=== PATIENT | female | born 1950 | race Two or more races ===

== ENCOUNTER 2017-10-29 04:23 | Emergency (ER) | payer MEDICARE ==
[2017-10-29] MEDS ORDERED: diPHENhydraMINE IV* 50 MG/ML 1 ml VIAL (BENADRYL) IV ONE (04:51)
[2017-10-29] MEDS ORDERED: Metoclopramide IV* 5 MG/ML 2 ML VIAL IV SLOW PU ONE (04:51)
[2017-10-29] MEDS ORDERED: Ketorolac INJ* 30 MG/ML 1 ML VIAL IV PUSH PRN (04:51)
[2017-10-29] MEDS ORDERED: Ketorolac INJ* 30 MG/ML 1 ML VIAL ONE (05:04)
[2017-10-29 05:05] LABS: ABS Basophils 0.1 10^3/ul (0-0.2); ABS Eosinophils 0.2 10^3/ul (0-0.6); ABS Lymphocytes 2.3 10^3/ul (1.0-4.8); ABS Monocytes 0.9 10^3/ul (0-0.8); ABS Neutrophils 6.4 10^3/ul (1.5-7.7); ABS Nucleated RBC 0 10^3/ul; Eosinophil % 2.3 % (0-6); Hematocrit 38 % (35-47); Hemoglobin 12.8 g/dl (12.0-16.0); Lymphocyte % 23.2 % (25-47); Mean Corpuscular HGB Conc 34 g/dl (31-36); Mean Corpuscular Hemoglobin 32 pg (27-31); Mean Corpuscular Volume 93 fL (80-97); Mean Platelet Volume 8.4 um3 (7.4-10.4); Nucleated Red Blood Cells % 0.1; Platelet Count 246 10^3/ul (150-450); Red Blood Count 4.07 10^6/ul (4.00-5.40); Red Cell Distribution Width 14 % (10.5-15); White Blood Count 9.9 10^3/ul (3.5-10.8)
[2017-10-29 05:13] VITALS: BP 171/82
[2017-10-29 05:13] LABS: INR 0.94 (0.77-1.02)
[2017-10-29 05:22] LABS: EGFR Non-African American 89.6 (>60)
--- NOTE | 2017-10-29 06:31 | ED ---
Bertin Larkin Gabriel, scribed for Annel Deleon MD on 10/29/17 at 0454 . Headache - HPI Summary HPI Summary: This patient is a 67 year old F presenting to [facility] with a chief complaint of left sided ROMERO that began 0330 this morning. The patient rates the pain 8/10 in severity. Pt states she woke up with vertigo at 0130 that was accompanied by nausea and diaphoresis. She went back to bed and when she awoke sx began. She took 81 mg asa with no relief. No hx vertigo - History Of Current Complaint Chief Complaint: EDHeadache Stated Complaint: GENERAL ILLNESS Time Seen by Provider: 10/29/17 04:42 Hx Obtained From: Patient Onset/Duration: Started hours ago, Still Present Initially Headache Was: Initial Pain Scale(0-10)= - 8 Currently Pain Is: Current Pain Scale(0-10)= - 8 Timing: Constant Associated Signs And Symptoms: Nausea - Allergies/Home Medications Allergies/Adverse Reactions: Allergies Allergy/AdvReac Type Severity Reaction Status Date / Time No Known Allergies Allergy Verified 10/29/17 04:37 PMH/Surg Hx/FS Hx/Imm Hx Endocrine/Hematology History: Reports: Hx Thyroid Disease Respiratory History: Reports: Hx Sleep Apnea - CPAP AT NIGHT INST TO BRING GI History: Reports: Hx Gastroesophageal Reflux Disease - ;OK WITH DAILY MED, Other GI Disorders - gastric bypass Musculoskeletal History: Denies: Hx Osteoporosis Sensory History: Reports: Hx Contacts or Glasses - GLASSES Denies: Hx Hearing Aid Opthamlomology History: Reports: Hx Contacts or Glasses - GLASSES - Cancer History Hx Chemotherapy: No Hx Radiation Therapy: No - Surgical History Surgery Procedure, Year, and Place: 1978 C SECTION [facility] [place]. 1981 C SECTION [facility] [place]. 1989 CARPAL TUNNEL. 1991 HYSTERECTOMY [facility] [place]. 2004 H L DISC [facility] [place]. 2010 GASTRIC BYPASS. 2011 GASTRIC BYPASS Hx Anesthesia Reactions: No Infectious Disease History: No Infectious Disease History: Denies: Traveled Outside the [place] in Last 30 Days - Social History Substance Use Type: Reports: None Review of Systems Positive: Skin Diaphoresis Positive: Nausea Neurological: Other - dizziness Positive: Headache All Other Systems Reviewed And Are Negative: Yes Physical Exam - Summary Physical Exam Summary: VITAL SIGNS: Reviewed. GENERAL: Patient is a well-developed and nourished female who is lying comfortable in the stretcher. Patient is not in any acute respiratory distress. HEAD AND FACE: No signs of trauma. No ecchymosis, hematomas or skull depressions. No sinus tenderness. EYES: PERRLA, EOMI x 2, No injected conjunctiva, no nystagmus. EARS: Hearing grossly intact. Ear canals and tympanic membranes are within normal limits. MOUTH: Oropharynx within normal limits. NECK: Supple, trachea is midline, no adenopathy, no JVD, no carotid bruit, no c- spine tenderness, neck with full ROM. CHEST: Symmetric, no tenderness at palpation LUNGS: Clear to auscultation bilaterally. No wheezing or crackles. CVS: Regular rate and rhythm, S1 and S2 present, no murmurs or gallops appreciated. ABDOMEN: Soft, non-tender. No signs of distention. No rebound no guarding, and no masses palpated. Bowel sounds are normal. EXTREMITIES: FROM in all major joints, no edema, no cyanosis or clubbing. NEURO: Alert and oriented x 3. No acute neurological deficits. Speech is normal and follows commands. SKIN: Dry and warm Triage Information Reviewed: Yes Vital Signs On Initial Exam: Initial Vitals Temp Pulse Resp BP Pulse Ox 97.7 F 75 16 172/87 97 10/29/17 04:33 10/29/17 04:33 10/29/17 04:33 10/29/17 04:33 10/29/17 04:33 Vital Signs Reviewed: Yes Diagnostics - Vital Signs Vital Signs Temp Pulse Resp BP Pulse Ox 10/29/17 04:33 97.7 F 75 16 172/87 97 - Laboratory Result Diagrams: 10/29/17 04:59 10/29/17 04:59 Lab Statement: Any lab studies that have been ordered have been reviewed, and results considered in the medical decision making process. - CT CT Head CT Interpretation Completed By: Radiologist - normal brain. No acute intracranial abnormality. No hemorrhage. No visible infarct or mass. Osseous structure intact ED physician has reviewed this radiology report. - EKG 0506 Cardiac Rate: NL EKG Rhythm: Sinus Rhythm - at 64 BPM EKG Interpretation: non specific t wave changes in the anterior leads Re-Evaluation - Re-Evaluation Second Eval Re-Evaluation Time: 06:23 Change: Improved Comment: The pt feels better and her headache has resolved. Headache Course/Dx - Course Assessment/Plan: This patient is a 67 year old F presenting to [facility] with a chief complaint of left sided ROMERO that began 0330 this morning. The patient rates the pain 8/10 in severity. Pt states she woke up with vertigo at 0130 that was accompanied by nausea and diaphoresis. She went back to bed and when she awoke sx began. She took 81 mg asa with no relief. No hx vertigo. An EKG reveals non specific t wave changes in the interior leads. CT Head reveals, per radiologist, normal brain. No acute intracranial abnormality. No hemorrhage. No visible infarct or mass. Osseous structure intact. In the ED course the patient was given toradol, Reglan, and Benadryl. Patient will be discharged and follow up from PCP. The patient is agreeable with this plan. - Diagnoses Provider Diagnoses: Headache Discharge - Sign-Out/Discharge Documenting (check all that apply): Discharge/Admit/Transfer - Discharge Plan Condition: Stable Disposition: HOME Patient Education Materials: Acute Headache (ED) Referrals: Lani Renner MD [Primary Care Provider] - 3 Days Additional Instructions: RETURN TO THE ER FOR ANY NEW OR WORSENING SYMPTOMS The documentation as recorded by the Bertin grimes Gabriel accurately reflects the service I personally performed and the decisions made by , Annel Deleon MD.
--- NOTE | 2017-10-29 07:57 | RAD ---
INDICATION: Headaches COMPARISON: None TECHNIQUE: Noncontrast axial source images were acquired from the skull base to the vertex. FINDINGS: Ventricles/sulci: The ventricles and cisterns are normal in size and configuration for age. Brain parenchyma: There is no focal parenchymal finding, evidence of intracranial mass, or intracranial mass effect. Intracranial hemorrhage:None. Extra-axial spaces: There are no abnormal extra axial fluid collections or evidence of extra-axial mass. Calvarium: There is no calvarial fracture or other calvarial abnormality. Scalp: There is no evidence of scalp or extracalvarial soft tissue abnormality. Paranasal sinuses/mastoid: The paranasal sinuses and mastoid air cells are clear. Other: None. IMPRESSION: No acute intracranial findings
== END 2017-10-29 06:49 | disposition home or self-care (01) ==
LOC: ED 04:23
DX: R51 Headache (principal); G47.30 Sleep apnea, unspecified; K21.9 Gastro-esophageal reflux disease without esophagitis; E07.9 Disorder of thyroid, unspecified
CPT/HCPCS: 36415; 70450; 80053; 83735; 85025; 85610; 85730; 93005; 96374; 96375; 96376; 99283; J1200; J1885; J2765

== ENCOUNTER 2017-11-06 10:50 | Observation (INO) | payer MEDICARE ==
[2017-11-06 13:15] LABS: ABS Basophils 0.1 10^3/ul (0-0.2); ABS Eosinophils 0.2 10^3/ul (0-0.6); ABS Lymphocytes 1.7 10^3/ul (1.0-4.8); ABS Monocytes 0.7 10^3/ul (0-0.8); ABS Neutrophils 4.5 10^3/ul (1.5-7.7); ABS Nucleated RBC 0 10^3/ul; Eosinophil % 2.6 % (0-6); Hematocrit 40 % (35-47); Hemoglobin 13.4 g/dl (12.0-16.0); Lymphocyte % 24.3 % (25-47); Mean Corpuscular HGB Conc 33 g/dl (31-36); Mean Corpuscular Hemoglobin 31 pg (27-31); Mean Corpuscular Volume 93 fL (80-97); Mean Platelet Volume 8.9 um3 (7.4-10.4); Nucleated Red Blood Cells % 0; Platelet Count 256 10^3/ul (150-450); Red Blood Count 4.33 10^6/ul (4.00-5.40); Red Cell Distribution Width 14 % (10.5-15); White Blood Count 7.2 10^3/ul (3.5-10.8)
[2017-11-06 13:27] LABS: EGFR Non-African American 82.4 (>60)
--- NOTE | 2017-11-06 13:33 | RAD ---
HISTORY: Chest pain COMPARISONS: August 17, 2010 VIEWS: 1: frontal portable view of the chest at 1:15 PM FINDINGS: LINES AND TUBES: None. CARDIOMEDIASTINAL SILHOUETTE: The cardiomediastinal silhouette is normal for portable technique. PLEURA: The costophrenic angles are sharp. No pleural abnormalities are noted. LUNG PARENCHYMA: The lungs are clear. ABDOMEN: The upper abdomen is clear. There is no subphrenic gas. BONES AND SOFT TISSUES: Degenerative changes are noted along the spine. IMPRESSION: NO ACTIVE CARDIOPULMONARY DISEASE.
[2017-11-06] MEDS ORDERED: Ondansetron ODT TAB* 4 MG PO PRN (15:56)
[2017-11-06] MEDS ORDERED: hydrALAZINE IV* 20 MG/ML VIAL IV SLOW PU PRN (16:10)
[2017-11-06] MEDS ORDERED: Iohexol 350* (CONTRAST) 500 ML MDV IV ONE (16:13)
--- NOTE | 2017-11-06 17:14 | RAD ---
INDICATION: Pain and swelling. COMPARISON: None TECHNIQUE: Duplex interrogation of the both lower extremities was was performed. FINDINGS: Deep veins: The common femoral, great saphenous, profunda femoris, proximal, mid, and distal deep femoral, popliteal, posterior tibial, and peroneal veins are patent. There is normal augmentation and phasic flow. The color flow images are normal. It was difficult to compress the left common femoral vein and the profunda femoris vein but this is likely related to technical factors related to patient size and guarding Superficial veins: There are no findings of superficial thrombophlebitis. Popliteal fossa:There is no evidence of a popliteal cyst. Soft tissues:There are no soft tissue abnormalities. IMPRESSION: NO CONVINCING EVIDENCE OF DEEP VENOUS THROMBOSIS.
[2017-11-06] MEDS: Heparin VIAL(*) 5000 UNITS/ML VIAL (FIVE THOUSAND) SUBCUT SCH (20:30)
[2017-11-06] MEDS: sulfaSALAzine TAB* 500 MG PO SCH (20:30)
--- NOTE | 2017-11-06 20:36 | RAD ---
HISTORY: eval for L vertebral dissection-Cerebellum CVA COMPARISONS: MRI of the brain dated November 05, 2017 TECHNIQUE: Multiple contiguous axial CT scans were obtained of the head, before and after, and of the neck after the administration of nonionic intravenous contrast timed to the systemic arterial phase of contrast enhancement. Coronal and sagittal multiplanar reformations are submitted for review. Multiple 3-D maximum intensity projection reconstructions are also submitted for review. FINDINGS: CTA NECK: AORTIC ARCH: There is a normal three-vessel branching pattern of the aortic arch. There is no ostial or proximal stenosis of the cephalic great vessels. RIGHT VERTEBRAL ARTERY: The right vertebral artery is patent along its course, without stenosis. LEFT VERTEBRAL ARTERY: There is loss of enhancement of the V1 segment of the left vertebral artery. There is distal reconstitution. DOMINANCE: The right vertebral artery is dominant. RIGHT COMMON CAROTID ARTERY: The right common carotid artery is patent. The right carotid bifurcation occurs at C3-C4 RIGHT INTERNAL CAROTID ARTERY: There is no right internal carotid artery stenosis by NASCET criteria. RIGHT EXTERNAL CAROTID ARTERY: The right external carotid artery is unremarkable. LEFT COMMON CAROTID ARTERY: The left common carotid artery is patent. The left carotid bifurcation occurs at C3-C4 LEFT INTERNAL CAROTID ARTERY: There is minimal calcific atheromatous disease of the left carotid bifurcation, without left internal carotid artery stenosis by NASCET criteria. LEFT EXTERNAL CAROTID ARTERY: The left external carotid artery is unremarkable. VENOUS CIRCULATION: The venous system is unremarkable. SALIVARY GLANDS: The parotid glands, submandibular glands, sublingual glands are normal. NASAL CAVITY/NASOPHARYNX: The nasal cavity and nasopharynx are normal. ORAL CAVITY/OROPHARYNX: The oral cavity is obscured by streak artifact from dental amalgam. The visualized oral cavity and oropharynx are unremarkable. LARYNGEAL APPARATUS/HYPOPHARYNX: The laryngeal apparatus and hypopharynx are normal. UPPER AIRWAY/UPPER ESOPHAGUS: The visualized upper airway and esophagus are normal. LUNG APICES: The lung apices are clear. THYROID GLAND: The thyroid gland is normal. LYMPH NODES: There is no lymphadenopathy by size criteria. BONES AND SOFT TISSUES: Degenerative changes are noted of the spine. CTA HEAD: INTRACRANIAL CIRCULATION: There is no aneurysm, vascular malformation, occlusion, or stenosis of the visualized intracranial circulation. The anterior communicating artery complex is clear. Bilateral posterior communicating arteries are identified. VENOUS CIRCULATION: The venous system is unremarkable. PERFUSION: There is no obvious parenchymal perfusion deficit. HEMORRHAGE/INFARCT: There is no hemorrhage or acute infarct. The cerebellar infarcts noted on MRI are not well visualized on the current examination. MASSES/SHIFT: There is no mass or shift. EXTRA-AXIAL SPACES: There are no extra-axial fluid collections. SULCI AND VENTRICLES: The sulci and ventricles are normal in size and position for the patient's stated age. CEREBRUM: There are no focal parenchymal abnormalities. BRAINSTEM: There are no focal parenchymal abnormalities. CEREBELLUM: There are no focal parenchymal abnormalities. PARANASAL SINUSES: There is a mucous retention cyst versus polypoid mucosal thickening of the right maxillary sinus. ORBITS: The orbits are unremarkable. BONES AND SOFT TISSUE: No bone or soft tissue abnormalities are noted. OTHER: There is no abnormal enhancement. IMPRESSION: 1. THERE IS LOSS OF ENHANCEMENT OF THE PROXIMAL LEFT VERTEBRAL ARTERY SUGGESTIVE OF OCCLUSION VERSUS HIGH-GRADE STENOSIS. PROXIMAL LEFT VERTEBRAL ARTERY DISSECTION IS ALSO WITHIN THE DIFFERENTIAL. THERE IS DISTAL RECONSTITUTION OF THE LEFT VERTEBRAL ARTERY. 2. THE CEREBRAL INFARCTS NOTED ON MRI NOT WELL VISUALIZED ON THE CURRENT CT EXAMINATION. 3. NO INTERNAL CAROTID ARTERY STENOSIS BY NASCET CRITERIA. 4. NO ANEURYSM, VASCULAR MALFORMATION, OCCLUSION, OR STENOSIS OF THE VISUALIZED INTRACRANIAL CIRCULATION. CPT II Codes: 3100F
[2017-11-06] MEDS ORDERED: sulfaSALAzine TAB* 500 MG PO ONE (20:43)
[2017-11-06] MEDS: Acetaminophen TAB* 325 MG PO PRN (20:56)
--- NOTE | 2017-11-07 02:14 | HP ---
CC: Dr. Renner * HISTORY AND PHYSICAL: DATE OF ADMISSION: 11/06/17 PRIMARY CARE PROVIDER: Dr. Renner. CHIEF COMPLAINT: Dizziness. HISTORY OF PRESENT ILLNESS: Ms. Esparza is 67-year-old female who has a history of past type 2 diabetes, resolved after gastric bypass surgery; CHIOMA; hypothyroidism as well as ulcerative colitis who presents to the emergency room after having an MRI obtained on the day prior to admission where she was found to have multiple subacute nonhemorrhagic infarcts of the left inferior cerebellum. The patient states approximately 1 week ago, she was mowing her lawn. This would have been on 10/28/17. She states that as she was mowing, she hit her head on a tree branch. She noted it was quite painful. She then went to bed at approximately 1:30 a.m. The patient states that she had extreme dizziness and essentially fell into bed. The patient felt nauseous as well as significant diaphoresis, though went to sleep. When she awakened at approximately 3 a.m., the dizziness had resolved, but she did complain of severe left-sided headache. She therefore went to the emergency room for evaluation. She obtained a CT scan of the brain, which was negative and she was sent home. This past 10/31/17, the patient drove to [place]. She felt okay during that period of time. On 11/02/17, the patient was driving back home and noted that she needed to stop to put air in her tire. She states she bent over and again suddenly felt extreme dizziness. The patient believes she had loss of consciousness as she did fall to the ground. She has a scrape on her right knee. She states that she woke up lying flat on her back. She then got up and she did drive the rest of the way home. She states on Friday, she has felt off balance or as though she is unsteady on her feet. The patient denies any headache or any other issues at this point. Again, the patient had an MRI obtained on 11/05/17 with results called to Dr. Renner this morning, who then informed the patient to go to the emergency room to be evaluated. PAST MEDICAL HISTORY: 1. Hypothyroidism. 2. CHIOMA, utilizing CPAP. 3. Type 2 diabetes - resolved post gastric bypass. 4. Ulcerative colitis. 5. GERD. PAST SURGICAL HISTORY: 1. Back surgery. 2. Lucila-en-Y gastric bypass. 3. x2. 4. Carpal tunnel on the right. 5. Bilateral cataract extraction. MEDICATIONS: 1. Loratadine 10 mg p.o. daily. 2. Multivitamin 1 gummy p.o. daily. 3. Calcium plus D 2 tabs p.o. daily. 4. Ferrous sulfate 325 mg p.o. daily. 5. Vitamin D3 2000 units p.o. daily. 6. Flonase 2 squirts to both nostrils daily. 7. Celexa 10 mg p.o. daily. 8. Celebrex 200 mg p.o. daily. 9. Sulfasalazine 500 mg p.o. t.i.d. 10. Levothyroxine 100 mcg p.o. daily. 11. Omeprazole 20 mg p.o. daily. ALLERGIES: No known drug allergies. FAMILY HISTORY: Mom at the age of 86. She had history of AAA as well as stroke. Dad at the age of 94. He had a history of prostate cancer, acoustic neuroma and colon cancer. SOCIAL HISTORY: The patient is a nonsmoker. She drinks alcohol on occasion. She is retired. She is not . She has 2 children. Her brother, Manny, would be her healthcare proxy. REVIEW OF SYSTEMS: A complete 11-system review of systems was obtained. Pertinent positives and negatives are as per HPI and otherwise negative. PHYSICAL EXAMINATION GENERAL: The patient is a well-developed, obese, middle-aged female, sitting up in the stretcher, in no acute distress. VITAL SIGNS: Blood pressure 168/78, pulse 59, respirations 17, temp 97.0, O2 sat 94% on room air. HEENT: Pupils are equal and round. Extraocular muscles are intact. Oropharynx is clear. Oral mucosa is moist. NECK: There is no submandibular, cervical or supraclavicular adenopathy. Thyroid is not enlarged. No thyroid nodules noted. PULMONARY: Lungs are clear to auscultation bilaterally. CARDIAC: Normal S1, S2. Regular rate and rhythm. I do not appreciate any murmurs. There is trace left greater than right lower extremity edema. ABDOMEN: Bowel sounds are present. Abdomen is soft, nontender, nondistended. MUSCULOSKELETAL: There is no cyanosis or clubbing of the digits. There is full active range of motion of all 4 extremities. NEUROLOGIC: Cranial nerves II through XII are grossly intact. Sensation is intact to light touch throughout. Strength is 5/5 and symmetric in both upper and lower extremities bilaterally. SKIN: Warm and dry. There are no rashes. PSYCH: The patient is alert. She is oriented x3. Affect appears appropriate. DIAGNOSTIC STUDIES/LAB DATA: WBC 7.2, hemoglobin 13.4, hematocrit 40, platelets 256. PTT 31. Sodium 142, potassium 3.6, chloride 108, CO2 27, BUN 17 , creatinine 0.71, glucose 123. Lactic acid 0.9. Calcium 9.1. Bilirubin 0.3, AST 23, ALT 23, alk phos 56. Troponin 0. BNP 18. Albumin 4.2. EKG reveals normal sinus rhythm without any acute ST-T wave abnormalities. Chest x-ray reveals no active cardiopulmonary disease. MRI brain from 11/05/17 reveals several subacute nonhemorrhagic lacunar infarcts to the left inferior cerebellum. The differential includes embolic disease. No CT angle mass. Stable scattered small nonspecific white matter changes. Enhancing tissue within the right sphenoid sinus most suggestive of polypoid mucosal thickening. Recommend attention on followup imaging. ASSESSMENT AND PLAN: Ms. Esparza is a 67-year-old female with a past history of type 2 diabetes, ulcerative colitis, hypothyroidism and obstructive sleep apnea, who presents to the emergency room after having an abnormal MRI where she was identified to have several subacute nonhemorrhagic infarcts of the inferior left cerebellum. 1. Left inferior cerebellum cerebrovascular accident. The patient will undergo CT angiogram of the head and neck to rule out dissection given the head trauma approximately 1 week ago. Additionally, the patient will be monitored on telemetry and have an echocardiogram with a bubble study obtained. The patient will also have lower extremity Doppler given there is the history of traveling to [place] as well as slight edema in her legs. Neurology consultation has been requested. For now, the patient will continue on aspirin 81 mg p.o. daily. The patient will have a lipid profile obtained tomorrow morning as well as hemoglobin A1c. The patient's blood pressure currently is markedly elevated. She states this is very abnormal for her. Hydralazine 5 mg IV every 6 hours will be available for systolic blood pressures greater than 190. 2. Hypothyroidism. The patient will continue on her usual dose of Synthroid. 3. Obstructive sleep apnea. The patient will utilize CPAP with sleep. 4. Ulcerative colitis. Continue sulfasalazine. 5. Gastroesophageal reflux disease. Continue omeprazole. 6. DVT prophylaxis. According to the Adult Thrombosis Prophylaxis Risk Factor Assessment Guide, the patient has a total risk factor score of 9 making her the highest risk. Heparin 5000 units subcutaneous q.8 hours will be utilized as DVT prophylaxis. 7. Code status is full. TIME SPENT: 65 minutes were spent admitting this patient. [id number]/[facility] #: [id number] MTDIgor
--- NOTE | 2017-11-07 03:54 | CONS ---
CC: Dr. Renner * NEUROLOGY CONSULTATION: DATE OF CONSULT: 11/06/17 REQUESTING PROVIDER: Dr. Nayana Maynard. PRIMARY CARE PHYSICIAN: Dr. Renner. REASON FOR CONSULT: Subacute cerebellar stroke. HISTORY OF PRESENT ILLNESS: Natalia Esparza is a 67-year-old woman with a history of obesity, ulcerative colitis, and hypothyroidism, who presented to the emergency department today under the direction of Dr. Renner, when her outpatient MRI which was performed yesterday showed a few subacute strokes in the left inferior cerebellum. 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 She recalls thinking that it was quite painful, but did not have any immediate symptoms. That night, she woke up out of sleep with vertigo and then developed a severe headache, which prompted her to come to the emergency department where she had a CT, which was negative. She was then given several IV medications for her pain, which took the headache away and was sent home. Her headache did not return. That episode of vertigo that occurred that night did cause her to have to vomit and she likens it to being put in clothes dryer. She then went to visit her daughter in [place] this past weekend and when she was returning on 11/02/17, she was at a gas station putting air in her tire when she again had the sudden onset of vertigo. She believes that she passed out because she remembers waking up on the ground on her back and she had scraped her right knee. No one saw the episode and she got up and drove the 4 hours home to [place]. Since then, she has continued to have a vague sense of imbalance, but no more deborah episodes of vertigo. She denies any incoordination in her extremities. She denies feeling as though she is pulled in any particular direction when she is walking. She has not had any falls, but she has been more careful when moving about. She denies any vision changes, dysarthria, dysphagia, diplopia, extremity weakness or numbness. She has never had symptoms like this before, but was concerned because her father had a history of acoustic neuroma and so, she went to see Dr. Renner as an outpatient, who ordered an MRI scan, which was performed yesterday and showed subacute infarcts in the left cerebellum. As such, she was referred to the emergency department for further evaluation. PAST MEDICAL HISTORY: 1. Ulcerative colitis. 2. Hypothyroidism. 3. GERD. 4. History of gastric bypass. 5. Allergies. 6. Osteoarthritis. 7. History of depression, which she says is no longer an issue. HOME MEDICATIONS: 1. Levothyroxine 37.5 mcg daily. 2. Vitamin D 2000 units daily. 3. Omeprazole 20 mg q.a.m. 4. Loratadine 10 mg daily. 5. Multivitamin daily. 6. Calcium carbonate/vitamin D 2 tabs daily. 7. Ferrous sulfate 325 daily. 8. Flonase daily. 9. Citalopram 10 mg daily. 10. Celecoxib 200 mg daily. 11. Sulfasalazine 500 mg 3 times daily. 12. She also took 3 baby aspirin this morning under the direction of Dr. Renner. ALLERGIES: No known drug allergies. FAMILY HISTORY: Her mother had strokes in her later years as well as an abdominal aortic aneurysm. Her father had an acoustic neuroma and hypertension and in his mid 90s. 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 She lives alone with her dog. She has 2 children , who are out of state. She is a nonsmoker. She drinks alcohol socially at [employer]. She denies any illicit drug use. REVIEW OF SYSTEMS: She denies any recent systemic illness. No chest pain, palpitations, breathing difficulties, joint pains, skin rashes. Otherwise as per the HPI. PHYSICAL EXAM: Vital Signs: Temperature 97, blood pressure 152/72, heart rate 59, oxygen saturation 98% on room air. On general examination, she is a very pleasant woman, in no acute distress. She is morbidly obese. Her heart is in a regular rate and rhythm with no obvious murmurs. There are no carotid bruits. Lungs are clear to auscultation. There is no lower extremity edema. She has a healing laceration over her right knee consistent with her falls secondary to vertigo over the weekend. On neurologic exam, she is fully awake, alert, and oriented. Speech is clear without dysarthria or aphasia. Pupils are equal, round, and reactive from 4 to 2 mm bilaterally. Versions are full without nystagmus. Perez are full to confrontation. Facial sensation and musculature is full and symmetric. Hearing is intact to voice. Palate elevates symmetrically and the tongue is midline. On motor examination, she has normal bulk and tone in the upper and lower extremities. Strength is full proximally and distally with no pronator drift. Sensation is intact to light touch in the upper and lower extremities. Reflexes are 1+ throughout with mute toes. Evxyxt-cj-jpgy and eugr-qa-vdek are intact without ataxia. Her gait is narrow based and stable. DIAGNOSTIC STUDIES/LAB DATA: CBC is overall unremarkable. Chemistry panel shows a slightly elevated BXK-ar-vuhczrgpoo ratio of 23.9 and glucose of 123. Liver functions are normal. Troponin is negative. Coagulation study is normal. I reviewed her MRI scan of the brain, which was performed yesterday and shows 2 to 3 small subacute infarcts in the left inferior cerebellum. There is also some evidence of very mild small vessel disease with a few punctate foci in the white matter of the bilateral cerebral hemispheres. Incidentally noted as well is enhancing material in the right sphenoid sinus, which is felt to be most consistent with a polypoid mucosal thickening. I reviewed her CTA of the head, which is not yet read by Radiology. The right vertebral artery is dominant and the left is visualized in the cervical region, but I am not able to well visualize the origin or the first portion of the cervical vertebral artery and I question whether there is an occlusion there with distal reconstitution. I do not clearly see evidence of dissection. She had venous Doppler study as well, which was negative for DVT. IMPRESSION AND PLAN: Natalia Esparza is a 67-year-old woman, who presents with subacute left cerebellar infarcts with symptoms of 2 episodes of vertigo associated with nausea and vomiting, which were self-limited, but now she is left with a more mild, but constant sense of imbalance. Overall, her neurologic exam is intact. Given the head trauma that she had about a week ago as well as possible additional head trauma that she may have suffered when she passed out because of the episode of vertigo, I was most concerned about the possibility of a vertebral artery dissection and therefore, she had the CTA with the official read pending. At this point, we will keep her on an aspirin, which I will change to full dose 325 mg daily. She will have echocardiogram tomorrow as well as fasting lipid profile and hemoglobin A1c to complete her stroke workup. We will monitor her on telemetry as well and may consider having PT evaluate her though I do not think she has any therapy needs based on her examination. Thank you for this consultation. [id number]/[facility] #: [id number] KAYLYN
[2017-11-07] MEDS ORDERED: Levothyroxine TAB* 100 MCG TAB PO SCH (06:00)
[2017-11-07] MEDS: Heparin VIAL(*) 5000 UNITS/ML VIAL (FIVE THOUSAND) SUBCUT SCH ×2 (06:20→13:33)
[2017-11-07] MEDS ORDERED: Citalopram TAB* 10 MG PO SCH (09:00)
[2017-11-07] MEDS ORDERED: Aspirin EC TAB* 325 MG PO SCH (09:00)
[2017-11-07] MEDS ORDERED: Ferrous Sulfate TAB* 325 MG PO SCH (09:00)
[2017-11-07] MEDS ORDERED: Aspirin 81 mg CHEW TAB* 81 MG TAB.CHEW PO SCH (09:00)
[2017-11-07] MEDS ORDERED: Omeprazole CAP* 20 MG PO SCH (09:00)
[2017-11-07] MEDS ORDERED: Cholecalciferol TAB* 1000 UNITS PO SCH (09:00)
[2017-11-07] MEDS: sulfaSALAzine TAB* 500 MG PO SCH ×2 (09:38→13:36)
--- NOTE | 2017-11-07 10:18 | ECHO ---
Patient: YESSI [facility] Rec#: [id number] : 1950 Date: 11/07/2017 Age: 67y Weight: kg / NaN lbs Sex: F Room#: 431 Admit Date#: 11/06/2017 Type: Inpatient Referring: Nayana Maynard DO Reading: Solomon Alcocer MD [employer] Director: Johana Renee RDCS CC: Lani Renner MD Transthoracic Echocardiogram Indication: CVA BP: 147/63 HR: 58 Rhythm: Bradycardia Findings History: CHIOMA with CPAP, obesity,CVA 11/05/17,hypothyroid,s/p gastric bypass. Technical Comments: The study quality is good. Completed at 0830. Left Ventricle: The left ventricular chamber size is normal. Posterior wall hypertrophy is observed. There is normal left ventricular systolic function. The estimated ejection fraction is 55-60%. Abnormal left ventricular diastolic function is observed. Left Atrium: The left atrial chamber size is normal. Right Ventricle: The right ventricular cavity size is normal. The right ventricular global systolic function is normal. Right Atrium: The right atrial cavity size is normal. There is no patent foramen ovale visualized. There is no evidence of patent foramen ovale shunting. A patent foramen ovale is not demonstrated with color Doppler and agitated contrast. Aortic Valve: The aortic valve is trileaflet. There is no evidence of aortic valve thickening. Mitral Valve: The mitral valve leaflets appear normal. There is a trace of mitral regurgitation. There is no evidence of mitral stenosis. Tricuspid Valve: The tricuspid valve leaflets are normal. There is mild tricuspid regurgitation. There is evidence of mild pulmonary hypertension. There is no tricuspid stenosis. Pulmonic Valve: The pulmonic valve appears normal. There is no evidence of pulmonic regurgitation. There is no pulmonic stenosis. Pericardium: A pericardial fat pad is visualized. Aorta: There is no dilatation of the ascending aorta. There is no dilatation of the aortic arch. There is no dilation of the aortic root. Pulmonary Artery: The main pulmonary artery appears normal. Venous: The inferior vena cava appears normal in size. There is a greater than 50% respiratory change in the inferior vena cava dimension. Contrast: Normal saline was used as contrast for the bubble study. Intravenous contrast was used to help determine presence of intracardiac shunting. Summary: There was not any prior study for comparison. Conclusions The left ventricular chamber size is normal. There is normal left ventricular systolic function. The estimated ejection fraction is 55-60%. Abnormal left ventricular diastolic function is observed. A patent foramen ovale is not demonstrated with color Doppler and agitated contrast. There is a trace of mitral regurgitation. There is mild tricuspid regurgitation. There is evidence of mild pulmonary hypertension. Measurements Name Value Normal Range RVIDd (AP) 2D 3 cm (0.9 - 2.6) RVDdMajor (2D) 3.9 cm (2.2 - 4.4) RAd ISD 4CH 4.7 cm (3.4 - 4.9) RA (A4C)W 3 cm (2.9 - 4.6) IVSd (2D) 1 cm (0.6 - 1) LVPWd (2D) 1.2 cm (0.6 - 1) LVIDd (2D) 4.6 cm (3.6 - 5.4) LVIDs (2D) 3.1 cm - LV FS (2D) 32 % (25 - 45) Aortic Annulus 1.8 cm (1.4 - 2.6) Ao root diameter (2D) 2.9 cm (2.1 - 3.5) Ascending Ao 2.7 cm (2.1 - 3.4) Aortic arch 2.6 cm (1.8 - 3.4) Descending Ao 0.6 cm - LA dimension (AP) 2D 3.8 cm (2.3 - 3.8) LAd ISD 4CH 5.6 cm (2.9 - 5.3) LA ISD 4CH W 3.8 cm (2.5 - 4.5) Name Value Normal Range LA ESV SP 4CH (A/L) 45 ml - LA ESV SP 2CH (A/L) 68 ml - LA ESV BP (A/L) 61 ml - LA ESV BP (A/L) index 28.72 ml/m2 - LA ESV SP 4CH (MOD) 42 ml - LA ESV SP 2CH (MOD) 63 ml - Name Value Normal Range MV E-wave Vmax 0.9 m/sec - MV deceleration time 271 msec - MV A-wave Vmax 0.8 m/sec - MV E:A ratio 1.06 ratio - LV septal e' Vmax 0.07 m/sec - LV lateral e' Vmax 0.08 m/sec - LV E:e' septal ratio 12.86 ratio - LV E:e' lateral ratio 11.25 ratio - Name Value Normal Range AV Vmax 1.6 m/sec - AV VTI 45.8 cm - AV peak gradient 10.12 mmHg - AV mean gradient 5.35 mmHg - LVOT Vmax 1.2 m/sec - LVOT VTI 33.6 cm - LVOT peak gradient 6.03 mmHg - LVOT mean gradient 2.8 mmHg - Name Value Normal Range TR Vmax 2.8 m/sec - TR peak gradient 31 mmHg - RAP 3 mmHg - RVSP 34 mmHg - IVC diameter 1.9 cm - Name Value Normal Range PV Vmax 0.9 m/sec - PV peak gradient 3.34 mmHg -
--- NOTE | 2017-11-07 11:03 | PN ---
Subjective Date of Service: 11/07/17 Interval History: Pt is feeling well. She still has a sense of imbalance and like she had a couple of alcoholic drinks. She states that she has ambulated around the floor without too much difficulty. She is wondering if she can drive. Objective Active Medications: Acetaminophen (Tylenol Tab*) 650 mg PO Q6H PRN PRN Reason: FEVER/PAIN Last Admin: 11/06/17 20:56 Dose: 650 mg Aspirin (Ecotrin Ec Tab*) 325 mg PO DAILY [facility] Last Admin: 11/07/17 09:30 Dose: 325 mg Cholecalciferol (Vitamin D Tab*) 2,000 units PO DAILY [facility] Last Admin: 11/07/17 09:30 Dose: 2,000 units Citalopram Hydrobromide (Celexa Tab*) 10 mg PO QAM [facility] Last Admin: 11/07/17 09:30 Dose: 10 mg Ferrous Sulfate (Ferrous Sulfate Tab*) 325 mg PO DAILY [facility] Last Admin: 11/07/17 09:30 Dose: 325 mg Heparin Sodium (Porcine) (Heparin Vial(*)) 5,000 units SUBCUT Q8HR [facility] Last Admin: 11/07/17 06:20 Dose: 5,000 units Hydralazine HCl (Apresoline Iv*) 5 mg IV SLOW PU Q6H PRN PRN Reason: SBP>190 Levothyroxine Sodium (Synthroid Tab*) 100 mcg PO 0600 [facility] Last Admin: 11/07/17 06:20 Dose: 100 mcg Omeprazole (Prilosec Cap*) 20 mg PO QAM [facility] Last Admin: 11/07/17 09:30 Dose: 20 mg Ondansetron HCl (Zofran Odt Tab*) 4 mg PO Q6H PRN PRN Reason: NAUSEA Sulfasalazine (Azulfidine Tab*) 500 mg PO TID [facility] Last Admin: 11/07/17 09:38 Dose: 500 mg Vital Signs - 8 hr 11/07/17 03:21 Temperature 98.2 F Pulse Rate 61 Respiratory 20 Rate Blood Pressure 147/63 (mmHg) O2 Sat by Pulse 96 Oximetry Oxygen Devices in Use Now: None Appearance: Middle aged female sitting up in bed, NAD Eyes: No Scleral Icterus Ears/Nose/Mouth/Throat: Mucous Membranes Moist Respiratory: Symmetrical Chest Expansion and Respiratory Effort, Clear to Auscultation Cardiovascular: NL Sounds; No Murmurs; No JVD, RRR, No Edema Abdominal: NL Sounds; No Tenderness; No Distention Extremities: No Clubbing, Cyanosis Skin: No Nodules or Sclerosis Neurological: Alert and Oriented x 3 Result Diagrams: 11/06/17 12:15 11/06/17 12:15 Assess/Plan/Problems-Billing Ms Esparza is a 67 yo F who has a h/o CHIOMA, past type II DM (resolved after gastric bypass), UC and hypothyroidism who presented to the ER after she had an abnormal MRI that revealed subacute L inferior cerebellar CVA. - Patient Problems (1) Cerebrovascular accident involving cerebellum Current Visit: Yes Status: Acute Code(s): I63.9 - CEREBRAL INFARCTION, UNSPECIFIED SNOMED Code(s): 12007021216196208 Comment: Pt likely developed the CVA secondary to L vertebral artery dissection secondary to trauma when she hit her head while mowing vs when she had LOC. She had been taking ASA 81mg daily previously-this has been increased to 325mg daily. She will likely benefit from outpatient PT to work on balance. Her lipid profile reveals an LDL of 73, total cholesterol of 169 and triglycerides of 259. As the source of CVA was felt to be due to trauma leading to L vertebral artery dissection will not initiate lipid lowering medication. She could however benefit from fenofibrate for triglyceride lowering. A1c is acceptable. (2) HTN (hypertension) Current Visit: Yes Status: Acute Code(s): I10 - ESSENTIAL (PRIMARY) HYPERTENSION SNOMED Code(s): 79712729 Comment: BP has been moderately elevated. Will discuss initiating an antihypertensive to achieve optimal BP control. (3) CHIOMA (obstructive sleep apnea) Current Visit: Yes Status: Acute Code(s): G47.33 - OBSTRUCTIVE SLEEP APNEA ( ADULT) (PEDIATRIC) SNOMED Code(s): 95455085 Comment: Continue CPAP at home settings. (4) Ulcerative colitis Current Visit: Yes Status: Acute Code(s): K51.90 - ULCERATIVE COLITIS, UNSPECIFIED, WITHOUT COMPLICATIONS SNOMED Code(s): 20924074 Comment: Continue sulfasalazine. (5) Hypothyroidism Current Visit: Yes Status: Acute Code(s): E03.9 - HYPOTHYROIDISM, UNSPECIFIED SNOMED Code(s): 46426582 Comment: Continue synthroid at current dose. (6) DVT prophylaxis Current Visit: Yes Status: Acute Code(s): FEF9983 - SNOMED Code(s): 412622502 Comment: SQ heparin (7) Full code status Current Visit: Yes Status: Acute Code(s): Z78.9 - OTHER SPECIFIED HEALTH STATUS SNOMED Code(s): 726511267
[2017-11-07] MEDS ORDERED: amLODIPine TAB* 5 MG PO SCH (12:00)
[2017-11-07 12:46] VITALS: BP 144/66
[2017-11-07] MEDS: Acetaminophen TAB* 325 MG PO PRN (13:34)
--- NOTE | 2017-11-08 05:37 | ED ---
Bertin Larkin Gabriel, scribed for Gloria Alavrado MD on 11/06/17 at 1256 . Neurological HPI - HPI Summary HPI Summary: This patient is a 67 year old F BIBA to [facility] with a chief complaint of dizziness which has been persistent for the last 5 days. A week ago at 0100 pt woke up experiencing dizziness, nausea, and diaphoresis. She went back to bed and woke up at 0300 with a left sided ROMERO and came to the ED at this time. She received a CT at this time which showed no significant abnormalities. 5 days ago the patient had an episode of dizziness follow by a LOC and since then she has felt dizzy. She describes the dizziness as light headed and feeling off balance. She also received an MRI yesterday from her PCP which should a CVA. Her PCP contacted her today and told her to report to the ED to be admitted for stroke and seen neurology. Patient denies n/v and unilateral weakness. - History of Current Complaint Chief Complaint: EDDizziness Stated Complaint: DIZZINESS/SENT BY DR KABA FOR STROKE 11/05 Time Seen by Provider: 11/06/17 12:25 Hx Obtained From: Patient Onset/Duration: Started days ago, Still Present Timing: Constant Onset Severity: Mild Current Severity: Mild Pain Intensity: 0 Pain Scale Used: 0-10 Numeric Syncope Context: Loss of Consciousness: Yes Associated Signs and Symptoms: Positive: Lightheadness. Negative: Nausea/ Vomiting - Allergy/Home Medications Allergies/Adverse Reactions: Allergies Allergy/AdvReac Type Severity Reaction Status Date / Time No Known Allergies Allergy Verified 10/29/17 04:37 Home Medications: Home Medications Calcium Carbonate/Vitamin D3 [Calcium 500 mg-Vit D3 600 Unit] 2 tab PO DAILY [History Confirmed 11/06/17] Cholecalciferol TAB* [Vitamin D TAB*] 2,000 units PO DAILY 11/06/17 [History Confirmed 11/06/17] Ferrous Sulfate TAB* 325 mg PO DAILY 11/06/17 [History Confirmed 11/06/17] Fluticasone NASAL SPRAY 50MCG* [Flonase NASAL SPRAY 50MCG*] 2 spray BOTH NARES DAILY 11/06/17 [History Confirmed 11/06/17] Levothyroxine TAB* [Synthroid 100 MCG TAB*] 37.5 mcg PO DAILY 11/06/17 [History Confirmed 11/06/17] LoraTADine TAB(NF) [Claritin 10 MG TAB(NF)] 10 mg PO DAILY 11/06/17 [History Confirmed 11/06/17] Multivit-Minerals/Folic Acid [Centrum Multigummies] 160 mcg PO DAILY 11/06/17 [ History Confirmed 11/06/17] sulfaSALAzine TAB* [Azulfidine TAB*] 500 mg PO TID 11/06/17 [History Confirmed 11/06/17] PMH/Surg Hx/FS Hx/Imm Hx Endocrine/Hematology History: Reports: Hx Thyroid Disease Denies: Hx Diabetes Cardiovascular History: Denies: Hx Hypertension, Hx Pacemaker/ICD Respiratory History: Reports: Hx Seasonal Allergies, Hx Sleep Apnea - CPAP AT NIGHT INST TO BRING GI History: Reports: Hx Gastroesophageal Reflux Disease - ;OK WITH DAILY MED, Other GI Disorders - gastric bypass and UC History: Denies: Hx Renal Disease Musculoskeletal History: Denies: Hx Osteoporosis Sensory History: Reports: Hx Contacts or Glasses - GLASSES Denies: Hx Hearing Aid Opthamlomology History: Reports: Hx Contacts or Glasses - GLASSES Psychiatric History: Denies: Hx Panic Disorder - Cancer History Hx Chemotherapy: No Hx Radiation Therapy: No - Surgical History Surgery Procedure, Year, and Place: 1978 C SECTION [facility] [place]. [place] C SE[place] [facility] [place]. 1989 CARPAL TUNNEL. 1991 HYSTERECTOMY [facility] [place]. 2004 - LUMBAR HERNIATED DISC [facility] [place]. 2010 GASTRIC BYPASS. CATARACTS Hx Anesthesia Reactions: No Infectious Disease History: No Infectious Disease History: Denies: Traveled Outside the [place] in Last 30 Days - Family History Known Family History: Negative: Hypertension, Renal Disease, Respiratory Disease, Seizure Disorder - Social History Alcohol Use: None Substance Use Type: Reports: None Smoking Status (MU): Never Smoked Tobacco Review of Systems Positive: Other - "feels off balance" Negative: Vomiting, Nausea Neurological: Other - LOC, dizziness, and light headedness Negative: Weakness All Other Systems Reviewed And Are Negative: Yes Physical Exam - Summary Physical Exam Summary: GENERAL: Patient is a well developed and nourished F who is lying comfortable in the stretcher. Patient is not in any acute respiratory distress. HEAD AND FACE: Normocephalic EYES: PERRLA, EOMI x 2. EARS: Hearing grossly intact. MOUTH: Oropharynx within normal limits. NECK: Supple, trachea is midline, no adenopathy, no JVD, no carotid bruit. CHEST: Symmetric, no tenderness at palpation LUNGS: Clear to auscultation bilaterally. No wheezing or crackles. CVS: Regular rate and rhythm, S1 and S2 present, no murmurs or gallops appreciated. ABDOMEN: Soft, non-tender. Bowel sounds are normal. No abdominal abnormal pulsations. EXTREMITIES: Full ROM in all major joints, no edema, no cyanosis or clubbing. NEURO: Alert and oriented x 3. No acute neurological deficits. Speech is normal and follows commands.Cranial nerves II-XII grossly intact, no dysmetria finger to nose, nml heel to hollis SKIN: Dry and warm Vital Signs On Initial Exam: Initial Vitals Temp Pulse Resp BP Pulse Ox 97.0 F 71 15 138/71 94 11/06/17 10:58 11/06/17 10:58 11/06/17 10:58 11/06/17 10:58 11/06/17 10:58 Diagnostics - Vital Signs Vital Signs Temp Pulse Resp BP Pulse Ox 11/06/17 12:21 60 140/74 94 11/06/17 12:20 59 95 11/06/17 10:58 97.0 F 71 15 138/71 94 - Laboratory Lab Results: Lab Results 11/06/17 11/06/17 11/06/17 Range/Units 12:15 12:15 12:15 WBC 7.2 (3.5-10.8) 10^3/ul RBC 4.33 (4.00-5.40) 10^6/ul Hgb 13.4 (12.0-16.0) g/dl Hct 40 (35-47) % MCV 93 (80-97) fL MCH 31 (27-31) pg MCHC 33 (31-36) g/dl RDW 14 (10.5-15) % Plt Count 256 (150-450) 10^3/ul MPV 8.9 (7.4-10.4) um3 Neut % (Auto) 62.5 (38-83) % Lymph % (Auto) 24.3 L (25-47) % [place] % (Auto) 9.7 H (0-7) % Eos % (Auto) 2.6 (0-6) % Baso % (Auto) 0.9 (0-2) % Absolute Neuts (auto) 4.5 (1.5-7.7) 10^3/ul Absolute Lymphs (auto) 1.7 (1.0-4.8) 10^3/ul Absolute Monos (auto) 0.7 (0-0.8) 10^3/ul Absolute Eos (auto) 0.2 (0-0.6) 10^3/ul Absolute Basos (auto) 0.1 (0-0.2) 10^3/ul Absolute Nucleated RBC 0 10^3/ul Nucleated RBC % 0 APTT 31.0 (26.0-36.3) seconds Sodium 142 (135-145) mmol/L Potassium 3.6 (3.5-5.0) mmol/L Chloride 108 (101-111) mmol/L Carbon Dioxide 27 (22-32) mmol/L Anion Gap 7 (2-11) mmol/L BUN 17 (6-24) mg/dL Creatinine 0.71 (0.51-0.95) mg/dL Est GFR ( Amer) 99.7 (>60) Est GFR (Non-Af Amer) 82.4 (>60) BUN/Creatinine Ratio 23.9 H (8-20) Glucose 123 H (70-100) mg/dL Lactic Acid (0.5-2.0) mmol/L Calcium 9.1 (8.6-10.3) mg/dL Total Bilirubin 0.30 (0.2-1.0) mg/dL AST 23 (13-39) U/L ALT 23 (7-52) U/L Alkaline Phosphatase 56 (34-104) U/L Troponin I 0.00 (<0.04) ng/mL B-Natriuretic Peptide ( - 100) pg/mL Total Protein 7.5 (6.4-8.9) g/dL Albumin 4.2 (3.2-5.2) g/dL Globulin 3.3 (2-4) g/dL Albumin/Globulin Ratio 1.3 (1-3) 11/06/17 11/06/17 Range/Units 12:15 12:15 WBC (3.5-10.8) 10^3/ul RBC (4.00-5.40) 10^6/ul Hgb (12.0-16.0) g/dl Hct (35-47) % MCV (80-97) fL MCH (27-31) pg MCHC (31-36) g/dl RDW (10.5-15) % Plt Count (150-450) 10^3/ul MPV (7.4-10.4) um3 Neut % (Auto) (38-83) % Lymph % (Auto) (25-47) % [place] % (Auto) (0-7) % Eos % (Auto) (0-6) % Baso % (Auto) (0-2) % Absolute Neuts (auto) (1.5-7.7) 10^3/ul Absolute Lymphs (auto) (1.0-4.8) 10^3/ul Absolute Monos (auto) (0-0.8) 10^3/ul Absolute Eos (auto) (0-0.6) 10^3/ul Absolute Basos (auto) (0-0.2) 10^3/ul Absolute Nucleated RBC 10^3/ul Nucleated RBC % APTT (26.0-36.3) seconds Sodium (135-145) mmol/L Potassium (3.5-5.0) mmol/L Chloride (101-111) mmol/L Carbon Dioxide (22-32) mmol/L Anion Gap (2-11) mmol/L BUN (6-24) mg/dL Creatinine (0.51-0.95) mg/dL Est GFR ( Amer) (>60) Est GFR (Non-Af Amer) (>60) BUN/Creatinine Ratio (8-20) Glucose (70-100) mg/dL Lactic Acid 0.9 (0.5-2.0) mmol/L Calcium (8.6-10.3) mg/dL Total Bilirubin (0.2-1.0) mg/dL AST (13-39) U/L ALT (7-52) U/L Alkaline Phosphatase (34-104) U/L Troponin I (<0.04) ng/mL B-Natriuretic Peptide 18 ( - 100) pg/mL Total Protein (6.4-8.9) g/dL Albumin (3.2-5.2) g/dL Globulin (2-4) g/dL Albumin/Globulin Ratio (1-3) Result Diagrams: 11/06/17 12:15 11/06/17 12:15 Lab Statement: Any lab studies that have been ordered have been reviewed, and results considered in the medical decision making process. - Radiology CXR Radiology Interpretation Completed By: Radiologist - NO ACTIVE CARDIOPULMONARY DISEASE. ED physician has reviewed this radiology report. - EKG 13:08' Cardiac Rate: Bradycardia EKG Rhythm: Sinus Bradycardia - at 59 BPM EKG Interpretation: no ischemic changes Course/Dx - Course Course Of Treatment: 67-year-old female who was directed here for an admission for full stroke workup after MRI done outpatient revealed multiple strokes in the cerebellum. Laboratory reviewed and are unremarkable. Patient stable - Diagnoses Provider Diagnoses: CVA (cerebral vascular accident) - Physician Notifications Discussed Care Of Patient With: Nayana Maynard Time Discussed With Above Provider: 13:26 Instructed by Provider To: Admit As Inpatient Discharge - Sign-Out/Discharge Documenting (check all that apply): Discharge/Admit/Transfer - admitted to Dr. Maynard - Discharge Plan Condition: Stable Disposition: ADMITTED TO HEALTH SYSTEM - Billing Disposition and Condition Condition: FAIR Disposition: Admitted to [facility] The documentation as recorded by the Bertin grimes Gabriel accurately reflects the service I personally performed and the decisions made by , Gloria Alvarado MD.
--- NOTE | 2017-11-08 09:23 | DS ---
C: Dr. Renner.* DISCHARGE SUMMARY: DATE OF ADMISSION: 11/06/17 DATE OF DISCHARGE: 11/07/17 PRIMARY CARE PROVIDER: Dr. 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 SECONDARY DIAGNOSES: 1. Hypothyroidism. 2. Obstructive sleep apnea. 3. Resolved type 2 diabetes, post gastric bypass. 4. Ulcerative colitis. 5. Gastroesophageal reflux disease. DISCHARGE MEDICATIONS: 1. Levothyroxine 37.5 mcg p.o. daily. 2. Vitamin D 2000 units p.o. daily. 3. Omeprazole 20 mg p.o. daily. 4. Loratadine 10 mg p.o. daily. 5. Multivitamin 160 mcg p.o. daily. 6. Calcium plus D 2 tabs p.o. daily. 7. Ferrous sulfate 325 mg p.o. daily. 8. Flonase 2 squirts to both nostrils daily. 9. Celexa 10 mg p.o. daily. 10. Celebrex 200 mg p.o. daily. 11. Sulfasalazine 500 mg p.o. t.i.d. 12. Amlodipine 5 mg p.o. daily (new) 13. Aspirin 325 mg p.o. daily (new dose). HOSPITAL COURSE: Ms. Esparza is a 67-year-old female who presented to the emergency room on 11/06/17 after she was called by her primary care provider with an abnormal MRI. The patient approximately a week before admission hit her head while mowing her yard. She then developed significant vertigo. This resolved. She had another episode of vertigo 2 days later, at which time she also had an episode of loss of consciousness and again fell this time to the ground. The patient since the Friday prior to admission had feeling of unsteadiness. She underwent MRI as ordered by her primary care provider, which revealed left inferior cerebellar subacute nonhemorrhagic infarcts. This was felt to be possibly embolic in nature. In discussion with Dr. Gomez, it was recommended to obtain a CTA of the head and neck to evaluate for and possible vertebral artery dissection given the history of trauma. 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 The patient had her aspirin changed from 81 mg to [address] Gomez. The patient worked with Physical Therapy in the hospital and does appear to have some needs , in that she is still unsteady on her feet. The patient can follow up an outpatient physical therapy. The patient has been instructed to return to the emergency room if she has any new neurologic symptoms. During the course of the hospitalization, the patient's blood pressure was noted to be moderately elevated. She was started on amlodipine 5 mg p.o. daily. The patient will need her blood pressure check by her primary care provider to determine if this dose is appropriate. Additionally, the patient's had a lipid profile obtained on day of discharge, which revealed a total cholesterol level of 169, LDL of 73, HDL of 44 and triglyceride level of 259. The patient was not started on lipid-lowering medication for her stroke as the cause of stroke was felt to be secondary to trauma and vertebral artery dissection. The patient's triglyceride level, however, is quite elevated. We have discussed diet and exercise to try to bring this down. The patient should discuss the need for possible fenofibrate or other medication to bring down her triglycerides with her primary care provider. FOLLOWUP CONCERNS: The patient is being discharged to home today, 11/07/17. ACTIVITY LEVEL: As tolerated. DIET: Low fat. CONDITION ON DISCHARGE: Stable. FOLLOWUP: The patient has been asked to follow up with Dr. Renner in the next 4 to 7 days. TIME SPENT: Thirty five minutes was spent discharging this patient. [id number]/CPS #: [id number] MTDD
== END 2017-11-07 15:25 | disposition home or self-care (01) ==
LOC: ED 10:50 → MEDTELE 15:56
PROVIDERS: ADMIT Hospitalist; ATTEND Hospitalist
DX: I63.9 Cerebral infarction, unspecified (principal); R60.0 Localized edema; E03.9 Hypothyroidism, unspecified; G47.33 Obstructive sleep apnea (adult) (pediatric); E11.9 Type 2 diabetes mellitus without complications; Z98.84 Bariatric surgery status; K51.90 Ulcerative colitis, unspecified, without complications; K21.9 Gastro-esophageal reflux disease without esophagitis; Z79.899 Other long term (current) drug therapy; Z79.82 Long term (current) use of aspirin; R00.1 Bradycardia, unspecified
CPT/HCPCS: 36415; 70496; 70498; 71045; 80053; 80061; 83036; 83605; 83880; 84484; 85025; 85730; 93005; 93306; 93970; 96372; 99283; A9270-GY; G0378; G8978-GP-CJ; G8979-GP-CI; J1644; Q9967

== ENCOUNTER 2018-02-04 12:55 | Emergency (ER) | payer MEDICARE ==
--- OUTSIDE RECORDS SUMMARY | 2018-02-04 13:04 | XMS REPORT ---
:1950 External Reference #:[id number] Author Organization [employer] Address [id number] [place] [address] [place] [address] Phone [phone] Care Team Providers Name Role Phone Lani Renner MD Primary Care Physician Unavailable Payers Type Date Identification Numbers Payment Provider Subscriber Medicare Primary Policy Number: [id number] Medicare Natalia Esparza PayID: [id number] [address] [place] [address] [facility] Part B Policy Number: [id number] [facility] Natalia Esparza PayID: [id number] [address] [place] [address] Problems Date Description Provider Status Onset: 07/30/2016 Obstructive sleep apnea syndrome Akilah Bender MD Active Onset: 07/30/2016 Obesity Akilah Bender MD Active Family History Date Family Member(s) Problem(s) Comments Father Colon Cancer Social History Type Date Description Comments Marital Status Single Occupation Retired ETOH Use Occasionally consumes alcohol Smoking Patient has never smoked Daily Caffeine Consumes on average 3 cups of regular coffee per day Exercise Type/Frequency Exercises rarely Allergies, Adverse Reactions, Alerts Date Description Reaction Status Severity Comments 07/30/2016 NKDA active Medications Medication Date Status Form Strength Qnty SIG Indications Ordering Provider Celecoxib 07/29/ Active Capsules 200mg 1 by Unknown 2017 mouth every day Citalopram 07/29/ Active Tablets 10mg 1 by Unknown Hydrobromide 2017 mouth every day Levothyroxine 07/29/ Active Tablets 100mcg 1 by Unknown Sodium 2017 mouth every day Sulfasalazine 07/29/ Active Tablets 500mg 3 by Unknown 2017 mouth at bedtime.. Omeprazole 07/29/ Active Capsules DR 20mg 1 by Unknown 2017 mouth every day Multi-Vitamin 07/29/ Active Tablets 1 twice a Unknown 2016 day Claritin 07/29/ Active Capsules 10mg 1 tab Unknown 2017 daily as needed Calcium Citrate 00/ Active Tablets 630 twice a Unknown 0000 day Amlodipine / Active Tablets 5mg 1 by Unknown Besylate 0000 mouth every day Aspirin Ec 00/ Active Tablets DR 325mg 1 tablet Unknown 0000 by mouth daily Restasis 00/ Active Emulsion 0.05% Unknown Multidose 0000 Flonase 07/29/ Hx Suspension 50mcg/Act use 1 Unknown 2017 - spray in 07/29/ each 2017 nostril once daily Vital Signs Date Vital Result Comment 02/04/2018 Height 63 inches 5'3" Weight 250.00 lb Heart Rate 68 /min BP Systolic 138 mmHg BP Diastolic 80 mmHg Respiratory Rate 14 /min BMI (Body Mass Index) 44.3 kg/m2 07/30/2016 Height 63 inches 5'3" Weight 249.00 lb Heart Rate 84 /min BP Systolic 122 mmHg BP Diastolic 70 mmHg Respiratory Rate 14 /min O2 % BldC Oximetry 94 % BMI (Body Mass Index) 44.1 kg/m2 Neck Circumference in inches 17 Results Description No Information Procedures Date CPT Code Description Status 11/07/2017 92213 ECHO Transthorasic Realtime 2D W Doppler & Color Flow Completed Hosp 12/06/2011 76694 Polysomnography Sleep Staging 4+ Parameters Completed Encounters Type Date Location Provider CPT E/M Dx Office Visit 11/07/2017 [facility], [place]gor [place] [address] R55 9:22a Hospitalists R94.02 S09.90xD I10 G47.33 K51.90 Office Visit 11/06/2017 7:00a [facility] [address] I63.212 Office Visit 11/06/2017 9:22a [facility], Nayana Maynard [address] R55 Hospitalists D.[place] R94.02 S09.90xD R03.0 E03.9 G47.33 Office Visit 07/30/2016 11:00a [facility] [place] [address] G47.33 [facility] E66.09 Z68.41 Office Visit 12/20/2011 9:26a Adalberto Glover [address] 327.23 [facility] V67.59 Office Visit 11/16/2009 8:30a [facility] [place] [address] 726.79 C.M.A. Plan of Care Future Appointment(s):03/11/2018 11:00 am - Kaushik Dao M.D. at [facility]0602/17/2018 9:45 am - Alysa Gillette DNP, RN, [employer] [facility] at [facility]02/04/2018 - Kaushik Dao M.D.I77.74 Dissection of vertebral arteryNew Xrays:Cta Head/Neck 81836 - [id number] up:1-2 ssmrjlQ95.4 Cerebellar stroke syndrome
[2018-02-04 14:14] VITALS: BP 0/0
[2018-02-04] MEDS ORDERED: Dexamethasone IV* 4 MG/ML 1 ML (4 MG) IM ONE (14:52)
[2018-02-04] MEDS ORDERED: Ketorolac INJ* 60 MG/2 ML VIAL IM ONE (14:52)
--- NOTE | 2018-02-04 14:59 | UC ---
Back Pain HPI - HPI Summary HPI Summary: The patient is a 67 year old female presenting to the with a chief complaint of back pain onset about 4 days ago, rated at an 8 out of 10 and spreads down her R leg in her hip and gluteus. The past three days, she has been melissa tomatoes and doing heavy lifting, so she has been sitting on an ice pack and taking ibuprofen, but it has not helped. She is able to walk with some pain, and reports a past surgery on her back for a herniated disk. - History of Current Complaint Chief Complaint: UCBackPain Stated Complaint: BACK PAIN Time Seen by Provider: 02/04/18 14:44 Hx Obtained From: Patient Onset/Duration: Gradual Onset, Lasting Days Timing: Constant Severity Initially: Severe Severity Currently: Severe Pain Intensity: 8 Pain Scale Used: 0-10 Numeric Back Pain: Is Discrete @ - R lower back, Radiates To - R leg Character: Sharp Aggravating Factor(s): Movement, Lifting, Walking Alleviating Factor(s): Nothing Associated Signs And Symptoms: Positive: Pain with Weight Bearing. Negative: Bladder Incontinence, Bowel Incontinence Related History: Previous Back Injury - herniated disk with surgery - Allergies/Home Medications Allergies/Adverse Reactions: Allergies Allergy/AdvReac Type Severity Reaction Status Date / Time No Known Allergies Allergy Verified 02/04/18 14:04 Home Medications: Home Medications Ibuprofen TAB* [Motrin TAB* 600 MG] 600 mg PO Q6H PRN 02/04/18 [History Confirmed 02/04/18] PMH/Surg Hx/FS Hx/Imm Hx Previously Healthy: Yes Endocrine History: Hyperthyroidism Cardiovascular History: Hypertension - Surgical History Surgical History: Yes Surgery Procedure, Year, and Place: 1978 C [place] [facility] [place] C [place] [facility] [place]. [place] CARPAL TUNNEL. 1991 HYSTERECTOMY [facility] [place]. 2005 - LUMBAR HERNIATED DISC [facility] [place]. [place] GASTRIC BYPASS. CATARACTS - Family History Known Family History: Negative: Hypertension, Renal Disease, Respiratory Disease, Seizure Disorder - Social History Alcohol Use: Occasionally Substance Use Type: None Smoking Status (MU): Never Smoked Tobacco Review of Systems Genitourinary: Negative - any urinary or bowel issues Musculoskeletal: Myalgia - lower back pain and R leg pain All Other Systems Reviewed And Are Negative: Yes Physical Exam - Summary Physical Exam Summary: VITAL SIGNS: Reviewed. GENERAL: Patient is a well-developed and nourished (MALE OR FEMALE) who is lying comfortable in the stretcher. Patient is not in any acute respiratory distress. HEAD AND FACE: Normocephalic EYES: PERRLA, EOMI x 2. EARS: Hearing grossly intact. MOUTH: Oropharynx within normal limits. NECK: Supple, trachea is midline, no adenopathy, no JVD, no carotid bruit. CHEST: Symmetric, no tenderness at palpation LUNGS: Clear to auscultation bilaterally. No wheezing or crackles. CVS: Regular rate and rhythm, S1 and S2 present, no murmurs or gallops appreciated. ABDOMEN: Soft, non-tender. Bowel sounds are normal. No abdominal abnormal pulsations. EXTREMITIES: No edema, no cyanosis or clubbing. Positive paraspinal tenderness on lumbar spine, mostly R side. Positive straight leg test in R lower extremity at approximately 45 degrees. NEURO: Alert and oriented x 3. No acute neurological deficits. Speech is normal and follows commands. SKIN: Dry and warm Triage Information Reviewed: Yes Vital Signs: Initial Vital Signs Temp 98.6 F 02/04/18 14:07 Pulse 60 02/04/18 14:07 Resp 18 02/04/18 14:07 BP 0/0 02/04/18 14:07 Pulse Ox 97 02/04/18 14:07 Vital Signs Reviewed: Yes Diagnostics - Radiology L-spine XRAY Xray Interpretation: Positive (See Comments) - 1. GRADE 1 ANTERIOR SPONDYLOLISTHESIS AT THE L4-L5 LEVEL. 2. MILD TO MODERATE DIFFUSE DEGENERATIVE DISC DISEASE. Radiology Interpretation Completed By: Radiologist - ED physician has reviewed this report. Back Pain Course/Dx - Course Course Of Treatment: This patient is a 67-year-old female presents to the urgent care with chief complaint of having lower back pain mostly in the right side with rotation to the right upper extremity. She reports heavy lifting for the last couple days. No history of trauma. She doesn't have any urinary or fecal dysfunction. I believe that the patient has sciatic pain. Therefore, the patient was given Toradol and Decadron. X-ray of the lumbar spine impression: No fracture dislocation. The patient will be discharged home with follow-up with primary care physician. She will be given a prescription for Medrol Dosepak, [place] and Flexeril. She was instructed to return to the urgent care or emergency room if she develops any weakness in the right lower extremity or the left lower extremity, any numbness increase in pain or any other complaint. - Differential Dx/Diagnosis Provider Diagnoses: Sicatic pain. Back pain Discharge - Sign-Out/Discharge Documenting (check all that apply): Patient Departure All imaging exams completed and their final reports reviewed: Yes - Discharge Plan Condition: Stable Disposition: HOME Prescriptions: Cyclobenzaprine TAB* [Flexeril 10 MG TAB*] 10 mg PO TID PRN #12 tab PRN Reason: Pain HYDROcodone/ACETAMIN 5-325 MG* [[place] 5-325 TAB*] 1 tab PO Q4H PRN #10 tab MDD 4 PRN Reason: Pain methylPREDNISolone [Medrol Dosepak 4 MG*] 0 mg PO .SEE MAIK INSTRUCTION #1 maik Patient Education Materials: Sciatica (ED), Low Back Strain (ED) Referrals: Lani Renner MD [Primary Care Provider] - Additional Instructions: Take medications as instructed and adhere to plan Take Acetaminophen or ibuprofen for pain or fever Increase your fluid intake Return to the or go to the emergency department if symptoms worsen Follow-up with primary care physician in next 2-3 days - Billing Disposition and Condition Condition: STABLE Disposition: Home - Attestation Statements Document Initiated by Scribe: Yes Documenting Scribe: Zoe Flores Provider For Whom Issa is Documenting (Include Credential): Keith Churchill MD. Scribe Attestation: Zoe Larkin scribed for Keith Churchill MD. on 02/04/18 at 2039. Scribe Documentation Reviewed: Yes Provider Attestation: The documentation as recorded by the Zoe grimes accurately reflects the service I personally performed and the decisions made by Keith yuan MD.
--- NOTE | 2018-02-04 15:23 | RAD ---
INDICATION: Low back pain. COMPARISON: Comparison is made with a prior lumbar spine x-ray from November 26, 2005. TECHNIQUE: 3 views of the lumbar spine were obtained including lateral, AP and a coned-down lateral view of the lumbar sacral junction. FINDINGS: There is a mild lumbar scoliosis convex toward the right side. There is also mild grade 1 anterior spondylolisthesis at the L4-L5 level of approximately 5 mm. No fracture is seen. There is mild to moderate diffuse degenerative disc disease. IMPRESSION: 1. GRADE 1 ANTERIOR SPONDYLOLISTHESIS AT THE L4-L5 LEVEL. 2. MILD TO MODERATE DIFFUSE DEGENERATIVE DISC DISEASE.
== END 2018-02-04 15:30 | disposition home or self-care (01) ==
LOC: UCEAST 12:55
DX: M54.41 Lumbago with sciatica, right side (principal); M43.16 Spondylolisthesis, lumbar region; M51.36 Other intervertebral disc degeneration, lumbar region
CPT/HCPCS: 72100; 96372; 99212; G0463; J1100; J1885

== ENCOUNTER 2018-02-10 07:39 | Emergency (ER) | payer MEDICARE ==
--- NOTE | 2018-02-10 08:52 | ED ---
Back Pain - HPI Summary HPI Summary: A 67 y/o F presents to ED with excruciating low back pain initial onset 15 days ago. Pt states she was melissa tomatoes, and was lifting heavy boxes and twisting. She was seen at [facility] on 02/04/18. She was given Rx for Pt given [place], Flexeril, Prednisone at D/C. She felt better after that visit and went home and mowed her lawn using her riding engineering inspector. Her back pain returned the next day , she has been treating it with IBP and heating pad to no relief. She has been resting this week and still has low back pain radiating down her RLE. Associated sx: urinary incontinence 1x this AM, dragging RLE. Shes been unable to sleep due to the pain. She finished a recent course of Prednisone and felt constipated. She took laxative and stool softener and ended up having a bout of diarrhea. Pt lives alone. She does not use a can or walker at home. Denies recent falls. Denies PMHx. She last took her medication at 0530, she is due at 0930. Dr. Renner is her PCP. - History of Current Complaint Chief Complaint: EDBackInjuryPain Stated Complaint: RT LEG/LOWER BACK PAIN Time Seen by Provider: 02/10/18 08:22 Hx Obtained From: Patient, Family/Lens Grinder Onset/Duration: Gradual Onset, Lasting Weeks, Still Present Onset/Duration: Started Weeks Ago, Still Present Timing: Constant Severity Initially: Severe Severity Currently: Severe Pain Intensity: 9 Pain Scale Used: 0-10 Numeric Aggravating Symptom(s): Movement, Lifting, Walking Alleviating Symptom(s): Nothing Associated Signs And Symptoms: Positive: Weakness - RLE dragging, Bladder Incontinence - Allergies/Home Medications Allergies/Adverse Reactions: Allergies Allergy/AdvReac Type Severity Reaction Status Date / Time No Known Allergies Allergy Verified 02/10/18 07:42 PMH/Surg Hx/FS Hx/Imm Hx Previously Healthy: No Endocrine/Hematology History: Reports: Hx Thyroid Disease Denies: Hx Diabetes Cardiovascular History: Reports: Hx Hypertension Denies: Hx Pacemaker/ICD Respiratory History: Reports: Hx Seasonal Allergies, Hx Sleep Apnea - CPAP AT NIGHT INST TO BRING GI History: Reports: Hx Gastroesophageal Reflux Disease - ;OK WITH DAILY MED, Other GI Disorders - gastric bypass and UC History: Denies: Hx Renal Disease Musculoskeletal History: Denies: Hx Osteoporosis Sensory History: Reports: Hx Contacts or Glasses - GLASSES Denies: Hx Hearing Aid Opthamlomology History: Reports: Hx Contacts or Glasses - GLASSES Neurological History: Reports: Hx Transient Ischemic Attacks (TIA) Psychiatric History: Denies: Hx Panic Disorder - Cancer History Hx Chemotherapy: No Hx Radiation Therapy: No - Surgical History Surgery Procedure, Year, and Place: 1978 C SECTION [facility]. 1981 C SECTION [facility]. 1989 CARPAL TUNNEL. 1991 HYSTERECTOMY [facility]. 2004 - LUMBAR HERNIATED DISC [facility]. 2010 GASTRIC BYPASS. CATARACTS Hx Anesthesia Reactions: No Infectious Disease History: No Infectious Disease History: Denies: Traveled Outside the [place] in Last 30 Days - Family History Known Family History: Negative: Hypertension, Renal Disease, Respiratory Disease, Seizure Disorder - Social History Occupation: Retired Lives: Alone Alcohol Use: Occasionally Substance Use Type: Reports: None Smoking Status (MU): Never Smoked Tobacco Review of Systems Negative: Fever, Chills Negative: Erythema Negative: Ear Ache Negative: Chest Pain Negative: Shortness Of Breath, Cough Negative: Abdominal Pain, Vomiting, Nausea Positive: incontinence - urinary. Negative: dysuria, hematuria Positive: Other - pos: back pain; RLE dragging. Negative: Myalgia, Edema Negative: Rash Neurological: Other - neg: dizziness All Other Systems Reviewed And Are Negative: Yes Physical Exam - Summary Physical Exam Summary: Constitutional: Well-developed, Well-nourished, Alert. (-) Distressed Skin: Warm, Dry HENT: Normocephalic; Atraumatic Eyes: Conjunctiva normal Neck: Musculoskeletal ROM normal neck. (-) JVD, (-) Stridor, (-) Tracheal deviation Cardio: Rhythm regular, rate normal, Heart sounds normal; Intact distal pulses; The pedal pulses are 2+ and symmetric. Radial pulses are 2+ and symmetric. (-) Murmur Pulmonary/Chest wall: Effort normal. (-) Respiratory distress, (-) Wheezes, (-) Rales Abd: Soft, (-) epigastric tenderness, (-) Distension, (-) Guarding, (-) Rebound Musculoskeletal: (-) Edema. Positive cross straight leg raise. R foot plantar flexion is weak. Dorsiflexion is weak. R hip flexion is weak. Lymph: (-) Cervical adenopathy Neuro: Alert, Oriented x3 Psych: Mood and affect Normal Triage Information Reviewed: Yes Vital Signs On Initial Exam: Initial Vitals Temp Pulse Resp BP Pulse Ox 97.5 F 79 18 86/59 94 02/10/18 07:42 02/10/18 07:42 02/10/18 07:42 02/10/18 07:42 02/10/18 07:42 Vital Signs Reviewed: Yes Diagnostics - Vital Signs Vital Signs Temp Pulse Resp BP Pulse Ox 02/10/18 07:42 97.5 F 79 18 86/59 94 - Laboratory Result Diagrams: 02/10/18 08:58 02/10/18 08:58 Lab Statement: Any lab studies that have been ordered have been reviewed, and results considered in the medical decision making process. - Additional Comments Diagnostic Additional Comments: MRI of L-SPINE as read by radiologist: IMPRESSION: At L3-L4 moderate sized right lateral to right posterior lateral disc protrusion appears to impinge upon the right exiting L3 nerve root. There may be some mild to moderate spinal stenosis at the L3-L4 level. At L4-L5 and L5 -S1 broad-based protrusion and facet and ligamentous hypertrophy is noted. ED provider has reviewed this report. Re-Evaluation - Re-Evaluation 1 Re-Evaluation Time: 12:01 Change: Improved Comment: Pt is walking, feels well, has 4 out of 10 pain. Back Pain Course/Dx - Course Course Of Treatment: Pt is a 67 y/o F presenting with low back pain radiating to RLE initial onset 15 days ago, and 1x urinary incontinence this AM. She was seen at [facility] on 02/04/18, prescriped [place], Flexeril, Prednisone. She felt better after that visit, then mowed her lawn using her riding engineering inspector. Her back pain returned. She has been resting this week and still has low back pain radiating down her RLE. Shes been unable to sleep due to the pain. Pt lives alone, ambulates without assistance. Denies recent falls.Dr. Renner is her PCP. No signs or sx of cauda equina. She is able to ambulate. MRI shows "at L3-L4 moderate sized right lateral to right posterior lateral disc protrusion appears to impinge upon the right exiting L3 nerve root. There may be some mild to moderate spinal stenosis at the L3-L4 level. At L4-L5 and L5-S1 broad-based protrusion and facet and ligamentous hypertrophy is noted.". Pt has an adequate supply of IBP at home but it is not relieving her pain, will prescribe oral Naprosyn, Lidocaine patches. As well, told pt to follow up with her PCP and Dr. Padilla. - Diagnoses Provider Diagnoses: Sciatica, Lumbar nerve root impingement - Provider Notifications Discussed Care Of Patient With: Kaushik Padilla - neuro surgery Time Discussed With Above Provider: 12:12 Instructed by Provider To: Have Pt Call For Appt. - Discussed pt with LIZ Morales : Will see pt in office this week or early next week. Discharge - Sign-Out/Discharge Documenting (check all that apply): Patient Departure - DC - Discharge Plan Condition: Stable Disposition: HOME Prescriptions: Lidocaine PATCH 5%* [Lidoderm 5% Patch*] 1 patch TRANSDERM DAILY #14 patch Naproxen TAB* [Naprosyn 250 mg TAB*] 500 mg PO Q8H PRN #15 tab PRN Reason: Pain Scale 6-10 Patient Education Materials: Naproxen (By mouth), Lidocaine Patch (On the skin) , Sciatica (ED) Referrals: Lani Renner MD [Primary Care Provider] - 2 Days Kaushik Padilla MD [Medical Doctor] - 2 Days Additional Instructions: Follow up with Dr. Renner and Dr. Padilla, neurosurgery, in 2-[address] Padilla's office will schedule to see you this week or early next week. Return to the emergency department for changing or worsening symptoms. - Attestation Statements Document Initiated by Scribe: Yes Documenting Scribe: Deborah Palmer Provider For Whom Scribe is Documenting (Include Credential): Dr. Justice Rodriguez MD Scribe Attestation: I, Deborah Palmer, scribed for Dr. Justice Rodriguez MD on 02/10/18 at 1741.
[2018-02-10] MEDS ORDERED: Dexamethasone IV* 4 MG/ML 1 ML (4 MG) IV SLOW PU ONE (08:56)
[2018-02-10] MEDS ORDERED: Ketorolac INJ* 30 MG/ML 1 ML VIAL IV PUSH ONE (08:56)
[2018-02-10 09:10] LABS: Hematocrit 39 % (35-47); Mean Corpuscular HGB Conc 33 g/dl (31-36); Mean Corpuscular Hemoglobin 30 pg (27-31); Mean Corpuscular Volume 91 fL (80-97); Mean Platelet Volume 8.4 um3 (7.4-10.4); Platelet Count 276 10^3/ul (150-450); Red Blood Count 4.32 10^6/ul (4.00-5.40); Red Cell Distribution Width 13 % (10.5-15); White Blood Count 10.7 10^3/ul (3.5-10.8)
[2018-02-10 09:32] LABS: EGFR Non-African American 83.7 (>60)
--- NOTE | 2018-02-10 10:56 | RAD ---
Indication: Sciatica, right leg weakness. Sagittal and axial T1, axial T2, FLAIR, diffusion and susceptibility weighted images of the lumbar spine were obtained. The vertebral bodies appear normal in height. Normal bone marrow signal is noted. At L5-S1 there is disc desiccation. Facet arthropathy is noted. No central or foraminal stenosis is noted. No nerve root impingement is noted. At L4-L5 spondylitic ridge flattens the thecal sac. Moderate facet hypertrophy is noted with posterior lateral compression of the thecal sac. Mild spinal stenosis is noted. No foraminal stenosis is noted. At L3-L4 broad-based protrusion flattens the thecal sac. Bilateral facet and ligamentous hypertrophy results in a mild to moderate spinal stenosis at this level. There is a focal right posterior lateral disc protrusion which appears to narrow the right foramen and impinges upon the right exiting L3 nerve root. At L2-L3 and L1-L2 no disc protrusion is noted. No central or foraminal stenosis is present. Mild disc desiccation is noted. IMPRESSION: At L3-L4 moderate sized right lateral to right posterior lateral disc protrusion appears to impinge upon the right exiting L3 nerve root. There may be some mild to moderate spinal stenosis at the L3-L4 level. At L4-L5 and L5-S1 broad-based protrusion and facet and ligamentous hypertrophy is noted.
[2018-02-10 12:27] VITALS: BP 170/73
[2018-02-10] MEDS ORDERED: Lidocaine PATCH 5%* 1 PATCH TRANSDERM SCH (13:00)
[2018-02-10] MEDS ORDERED: Lidocaine Patch REMOVE* 1 NOTE MISC SCH (21:00)
== END 2018-02-10 12:26 | disposition home or self-care (01) ==
LOC: ED 07:39
DX: M51.17 Intervertebral disc disorders with radiculopathy, lumbosacral region (principal); R32 Unspecified urinary incontinence
CPT/HCPCS: 36415; 72148; 80053; 85027; 96374; 96375; 99282; A9270-GY; J1100; J1885

== ENCOUNTER 2018-02-24 09:59 | Observation (INO) | payer MEDICARE ==
[~2018-02-24 09:59] MED LIST: Buffered Lidocaine 0.9% SYRIN* 5 ML/SYR SYRINGE INTRADERM ONE; Dexamethasone TAB* 4 MG PO ONE; Famotidine IV* 10 MG/ML 2 ML (20 mg) IV ONE; Ondansetron TAB* 4 MG PO ONE
[2018-02-24] MEDS ORDERED: Famotidine IV* 10 MG/ML 2 ML (20 mg) ONE (10:02)
[2018-02-24] MEDS ORDERED: Ondansetron ODT TAB* 4 MG ONE (10:02)
[2018-02-24] MEDS ORDERED: ceFAZolin 2 GM PREMIX in ORs 2 GM/50 ML BAG IVPB ONE (10:02)
[2018-02-24] MEDS ORDERED: Dexamethasone TAB* 4 MG ONE (10:02)
[2018-02-24] MEDS ORDERED: oxyCODONE TAB* 5 MG TAB ONE (11:12)
[2018-02-24] MEDS ORDERED: Propofol* 10 MG/ML 20 ML BTL IV PUSH ONE (12:08)
[2018-02-24] MEDS ORDERED: Lidocaine 2% PF * 5 ML VIAL ONE (12:08)
[2018-02-24] MEDS ORDERED: Midazolam* 1 MG/ML 2 ML VIAL (2 MG) ONE (12:08)
[2018-02-24] MEDS ORDERED: fentaNYL* 50 MCG/ML 2 ML VIAL (100 MCG VIAL) ONE (12:08)
[2018-02-24] MEDS ORDERED: Rocuronium* 10 MG/ML VIAL ONE (12:09)
[2018-02-24] MEDS ORDERED: Gelfoam 12-7 ADSORBABL SPONGE* 1 EA SPONGE ONE (12:19)
[2018-02-24] MEDS ORDERED: Gelfoam Sponge SIZE 100* SPONGE ONE (12:20)
[2018-02-24] MEDS ORDERED: Phenylephrine INJ* 10 MG/ML 1 ML VIAL (10 MG) ONE (14:17)
[2018-02-24] MEDS ORDERED: Acetaminophen TAB* 325 MG PO PRN (14:20)
[2018-02-24] MEDS ORDERED: Magnesium Hydroxide LIQ* 30 ML UDC PO PRN (14:20)
[2018-02-24] MEDS ORDERED: Cyclobenzaprine TAB* 10 MG PO PRN (14:24)
[2018-02-24] MEDS ORDERED: Naloxone* 0.4 MG/ML 1 ML VIAL IV PRN (14:45)
[2018-02-24] MEDS ORDERED: fentaNYL* 50 MCG/ML 2 ML VIAL (100 MCG VIAL) IV PRN (14:45)
[2018-02-24] MEDS ORDERED: DiMENhydriNATE IV* 50 MG/ML VIAL IV PUSH PRN (14:45)
[2018-02-24] MEDS ORDERED: HYDROcodone/ACETAMIN 5-325 MG* 1 TAB ONE (15:04)
[2018-02-24] MEDS: HYDROcodone/ACETAMIN 5-325 MG* 1 TAB PO PRN ×2 (15:05→21:37)
[2018-02-24] MEDS ORDERED: Cyclobenzaprine TAB* 10 MG ONE (16:07)
[2018-02-24] MEDS ORDERED: Aspirin EC TAB* 325 MG PO SCH (18:00)
[2018-02-24] MEDS ORDERED: sulfaSALAzine TAB* 500 MG PO SCH (21:00)
[2018-02-24] MEDS: Calcium Carbonate TAB* 1250 MG (CALCIUM 500 MG) PO SCH (21:37)
[2018-02-25] MEDS: HYDROcodone/ACETAMIN 5-325 MG* 1 TAB PO PRN (05:20)
[2018-02-25] MEDS ORDERED: Levothyroxine TAB* 100 MCG TAB PO SCH (06:00)
[2018-02-25] MEDS ORDERED: Omeprazole CAP* 20 MG PO SCH (07:30)
--- NOTE | 2018-02-25 07:45 | RAD ---
HISTORY: Lumbar discectomy COMPARISONS: February 04, 2018 VIEWS: 1 single portable crosstable intraoperative view of the lumbar spine performed for localization during spinal surgery. FINDINGS: A single lateral view of the lumbar spine performed at 1:17 PM demonstrates a metallic probe opposite of L3-L4 and from L5 as the last lumbar type vertebral body. IMPRESSION: LIMITED PORTABLE VIEW OF THE SPINE FOR LOCALIZATION DURING SPINAL SURGERY.
--- NOTE | 2018-02-25 07:46 | PN ---
Progress Note - Progress Note Date of Service: 02/25/18 SOAP: Subjective: [] POD # 1 Doing well Pre op leg pain much better Moderate drainage on dressing Objective: []Mod drainage on dressing Neuro -mild dyesthesia right thigh Assessment: []Stable post op course Plan: []D/C today D/C Instructions given
[2018-02-25 07:51] VITALS: BP 130/48
[2018-02-25] MEDS: Calcium Carbonate TAB* 1250 MG (CALCIUM 500 MG) PO SCH (08:02)
[2018-02-25] MEDS ORDERED: Cholecalciferol TAB* 1000 UNITS PO SCH (09:00)
[2018-02-25] MEDS ORDERED: amLODIPine TAB* 5 MG PO SCH (09:00)
[2018-02-25] MEDS ORDERED: Citalopram TAB* 10 MG PO SCH (09:00)
[2018-02-25] MEDS ORDERED: Polyethylene Glycol 3350* 17 GM PACKET PO SCH (09:00)
--- NOTE | 2018-02-28 03:58 | DS ---
AMENDED REPORT NOW INCLUDES COSIGNER DESIGNATION DISCHARGE SUMMARY: DATE OF ADMISSION: 02/24/18 DATE OF DISCHARGE: 02/25/18 ATTENDING PHYSICIAN: Dr. Padilla* (dictated by JOSE Matt). DISCHARGE DIAGNOSES: 1. Herniated nucleus pulposus, L3-4 on the right. 2. Hypothyroidism. 3. Hypertension. 4. Vertebral artery dissection. 6. History of cerebellar stroke. 7. Obesity. SPECIAL PROCEDURE: Lumbar diskectomy, L3-4 on the right. HOSPITAL COURSE: This 67-year-old female was seen in the office with a right- sided lumbar radiculopathy for the previous 3 weeks. She had not improved with oral steroids and pain medication and displayed right lower extremity weakness. Treatment with surgery was discussed and she decided to proceed with this option. After receiving clearance from Neurology in regards to the vertebral artery dissection, she underwent surgery. On the day of admission, she was taken to surgery where under general anesthesia, a lumbar diskectomy at L3-4 on the right operation was carried out. Postoperatively, the right lower extremity symptoms were resolved. She was ambulating independently and she was eating, drinking, and voiding without difficulty. Pain was well controlled with oral pain medication. She continued the aspirin postoperatively as recommended by Neurology. On the first postoperative day, she was discharged home to the care of her family. DISCHARGE INSTRUCTIONS: Including care wound care and activity level were discussed with the patient and information on this was provided. DISCHARGE MEDICATIONS: None. FOLLOWUP: She will be seen in the office in approximately 10 days. JOSE MATT [id number]/[facility] #: [id number] KAYLYN
--- NOTE | 2018-03-05 07:07 | OP ---
DATE OF OPERATION: 02/24/18 - ROOM #333 DATE OF : 52 SURGEON: Kaushik Padilla MD SECURITY POLICE OFFICER: JOSE Funes ANESTHESIA: General. PRE-OP DIAGNOSIS: Herniated nucleus pulposus, L3-4, on the right. POST-OP DIAGNOSIS: Herniated nucleus pulposus, L3-4, on the right. OPERATIVE PROCEDURE: Lumbar diskectomy at L3-4 on the right with microdissection. DESCRIPTION OF PROCEDURE: After satisfactory general anesthesia was obtained, the patient was placed on the operating table in the prone position with the chest supported on the Chris frame and the back slightly flexed. The lumbar region was then clipped, prepped and draped in a sterile manner for a lumbar laminectomy and a skin incision was outlined from L3 to L4. This incision was infiltrated with 1% Xylocaine with epinephrine, after which it was turned down sharply to the level of the lumbar fascia. The fascia was divided along the spinous processes of L3 and L4 and the paraspinal musculature stripped away from these posterior elements using the periosteal elevator and monopolar cautery. An intraoperative x-ray was obtained verifying proper interspace localization, after which a partial hemilaminectomy was carried out at this level by removing the inferior aspect of the L3 lamina and medial aspect of the facet complex utilizing a combination of the Midas Rayshawn drill and Kerrison rongeurs. This was carried superiorly until the attachment of ligamentum flavum was taken down. The ligamentum flavum was then removed with the Kerrison as well. Additional superior and lateral exposure was obtained as preoperative imaging had suggested the far lateral herniation of an L3- 4 disk fragment. At this point of surgery, the operating microscope was brought into the field, and the remainder of the procedure done under microscopic visualization. Utilizing microdissection, copious epidural venous structures were coagulated and divided. Projecting out laterally was an extruded disk fragment covered by a thin rim of posterior longitudinal ligament. An opening was made in the posterior longitudinal ligament and multiple fragments of disk removed from beneath the L3 nerve root. The opening was then enlarged into the disk space itself and the disk space cleared of any loose disk material using pituitary forceps and curettes. At the conclusion of the decompression, both the L3 and L4 nerve roots were noted to be free in their course. After assuring adequate hemostasis, the wound was thoroughly irrigated, after which a piece of Gelfoam was placed over the laminectomy defect. The fascia was then reapproximated with 0 Vicryl suture. The subcutaneous tissue was closed with 3- 0 Vicryl suture and the skin closed with skin clips. The estimated blood loss was less than 50 cc and the final sponge, padding, and needle counts were correct. The patient was taken to the recovery room, extubated, and in stable condition. [id number]/[facility] #: [id number] KAYLYN
== END 2018-02-25 09:20 | disposition home or self-care (01) ==
LOC: OR 09:59 → SSU 16:23
PROVIDERS: ADMIT Neurological Surgery; ATTEND Neurological Surgery
DX: M51.26 Other intervertebral disc displacement, lumbar region (principal); E03.9 Hypothyroidism, unspecified; I10 Essential (primary) hypertension; I77.74 Dissection of vertebral artery; E66.9 Obesity, unspecified; Z86.73 Personal history of transient ischemic attack (TIA), and cerebral infarction without residual deficits; M54.9 Dorsalgia, unspecified; M79.604 Pain in right leg; G47.30 Sleep apnea, unspecified; Z90.710 Acquired absence of both cervix and uterus
CPT/HCPCS: 72100; 96374; 96375; 96376; A9270-GY; G0378; J0690; J2250; J2704; J3010; J8540

== ENCOUNTER 2022-02-12 11:52 | Inpatient (IN) ==
[~2022-02-12 11:52] MED LIST changes: -Buffered Lidocaine 0.9% SYRIN* 5 ML/SYR SYRINGE INTRADERM ONE; +Buffered Lidocaine 1% SYRIN 1 ml INTRADERM ONE; +Dexamethasone IV 4 MG/ML VIAL 1 ml VIAL IV SLOW PU ONE; -Dexamethasone TAB* 4 MG PO ONE; +Famotidine IV 10 MG/ML 2 ml VIAL (20 mg) IV ONE; -Famotidine IV* 10 MG/ML 2 ML (20 mg) IV ONE; +Lactated Ringers 1000 ml BAG 1,000 ML IV SCH; -Ondansetron TAB* 4 MG PO ONE
[2022-02-12] MEDS ORDERED: ceFAZolin 2 GM PREMIX 2 GM/50 ML BAG ONE (12:14)
[2022-02-12] MEDS ORDERED: Famotidine IV 10 MG/ML 2 ml VIAL (20 mg) ONE (12:14)
[2022-02-12] MEDS ORDERED: Dexamethasone IV 4 MG/ML VIAL 1 ml VIAL ONE (12:14)
[2022-02-12] MEDS ORDERED: Propofol 10 MG/ML 20 ML BTL ONE ×3 (12:32→16:50)
[2022-02-12] MEDS ORDERED: Ondansetron 4 mg VIAL 2 MG/ML 2 ml VIAL ONE (12:32)
[2022-02-12] MEDS ORDERED: fentaNYL 100 mcg/2 ml 50 MCG/ML VIAL ONE (12:32)
[2022-02-12] MEDS ORDERED: Lidocaine 2% PF 5 ML VIAL ONE (12:32)
[2022-02-12] MEDS ORDERED: Midazolam 2 mg/2 ml VIAL 1 mg/ml 2 ml VIAL (2 mg) ONE ×2 (12:32→14:30)
[2022-02-12] MEDS ORDERED: Buffered Lidocaine 1% SYRIN 1 ml INTRADERM ONE (12:40)
[2022-02-12] MEDS ORDERED: ROPIVACAINE 5 MG/ML 30 ML BTL (0.5%) ONE (13:57)
[2022-02-12] MEDS ORDERED: Ropivacaine 5 MG/ML 20 ML VIAL 0.5% (100 MG) ONE (15:37)
[2022-02-12] MEDS ORDERED: Ondansetron 4 mg VIAL 2 MG/ML 2 ml VIAL IV PRN (17:13)
[2022-02-12] MEDS ORDERED: Ondansetron ODT 4 mg TAB 4 MG TAB PO PRN (17:13)
[2022-02-12] MEDS ORDERED: Magnesium Hydroxide LIQ 30 ML UDC PO PRN (17:13)
[2022-02-12] MEDS ORDERED: Lactulose 30 ml UDC PO PRN (17:13)
[2022-02-12] MEDS ORDERED: Lactated Ringers 1000 ml BAG 1,000 ML IV SCH (18:00)
[2022-02-12] MEDS: Magnesium Hydroxide LIQ 30 ML UDC PO SCH (21:00)
[2022-02-12] MEDS: ceFAZolin 1 GM ADVAN 1 GM in NS 0.9% 50 ML 50 ML IVPB SCH (22:36)
[2022-02-12] MEDS: Morphine 2 MG/ML SYRINGE IV PRN (23:32)
[2022-02-13] MEDS: Morphine 2 MG/ML SYRINGE IV PRN (03:52)
[2022-02-13 05:07] LABS: Hematocrit 34 % (35-47); Hemoglobin 11.3 g/dL (12.0-16.0); Mean Platelet Volume 8.4 fL (7.4-10.4); Platelet Count 245 10^3/uL (150-450)
[2022-02-13 05:29] LABS: Calcium 8.4 mg/dL (8.6-10.3); Potassium 4.5 mmol/L (3.5-5.0); eGFR CKD-EPI 91.4 (>60)
[2022-02-13] MEDS: ceFAZolin 1 GM ADVAN 1 GM in NS 0.9% 50 ML 50 ML IVPB SCH ×2 (08:31→14:10)
[2022-02-13] MEDS: Magnesium Hydroxide LIQ 30 ML UDC PO SCH ×2 (08:36→22:42)
[2022-02-13] MEDS: Vitamin THERAPEUTIC TAB PO SCH (08:36)
[2022-02-13] MEDS: Aspirin EC 81 mg TAB.EC (enteric coated) PO SCH (14:10)
[2022-02-14] MEDS: Morphine 2 MG/ML SYRINGE IV PRN (03:47)
[2022-02-14 06:14] LABS: Hematocrit 29 % (35-47); Hemoglobin 9.8 g/dL (12.0-16.0); Mean Platelet Volume 8.7 fL (7.4-10.4); Platelet Count 194 10^3/uL (150-450)
[2022-02-14] MEDS: Vitamin THERAPEUTIC TAB PO SCH (08:52)
[2022-02-14] MEDS: Aspirin EC 81 mg TAB.EC (enteric coated) PO SCH (08:52)
[2022-02-14] MEDS: Magnesium Hydroxide LIQ 30 ML UDC PO SCH (08:53)
[2022-02-14 11:27] VITALS: BP 143/68
== END 2022-02-14 14:15 | disposition home or self-care (01) | DRG 470 ==
LOC: SSU → INTOOBSV 11:52 → AA 11:52
PROVIDERS: ADMIT Orthopaedic Surgery Adult Reconstructive Orthopaedic Surgery; ATTEND Orthopaedic Surgery Adult Reconstructive Orthopaedic Surgery